=== PATIENT | female | born 1935 | race Asian ===

== ENCOUNTER 2018-05-17 13:49 | Inpatient (IN) | payer OTHER ==
[~2018-05-17] VITALS: Ht 152.4 cm; Wt 35.8 kg
[~2018-05-17 13:49] MED LIST: AMLO5TAB4 PO; MONT10TA25 PO
[2018-05-17 13:55] VITALS: BP_SYST 110
[2018-05-17] MEDS ORDERED: NACL 0.9% 1,000 ML IV ONE (14:42)
[2018-05-17 15:12] LABS: BILIRUBIN,URINE NEGATIVE (NEGATIVE); BLOOD, URINE NEGATIVE (NEGATIVE); CLARITY/URINE CLOUDY (CLEAR); COLOR,URINE YELLOW (YELLOW); GLUCOSE,URINE NEGATIVE (NEGATIVE); KETONES,URINE NEGATIVE (NEGATIVE); LEUKOCYTE ESTERASE ,URINE 1+ (NEGATIVE); NITRITE, URINE POSITIVE (NEGATIVE); PROTEIN URINE NEGATIVE (NEGATIVE); UROBILINOGEN,URINE 0.2 (0.2-1.0)
[2018-05-17 15:26] LABS: ANION GAP 5 (5-15); BASOPHILS % (AUTO) 0.8 % (0.0-2.0); CALCIUM 8.4 mg/dL (8.4-11.0); CHLORIDE 108 mmol/L (98-107); CREATININE 0.75 mg/dL (0.55-1.30); EOSINOPHILS % (AUTO) 0.9 % (0.0-4.0); GLUCOSE 102 mg/dL (70-99); HEMATOCRIT 31.9 % (36-48); HEMOGLOBIN 10.7 g/dL (12.0-16.0); LYMPHOCYTES # (AUTO) 1.1 K/uL (1.0-5.5); LYMPHOCYTES % (AUTO) 20.1 % (20.5-51.5); MEAN CORPUSCULAR HEMOGLOBIN 32 pg (27-31); MEAN CORPUSCULAR HGB CONC 34 % (32-36); MEAN CORPUSCULAR VOLUME 94 fL (79.0-98.0); MONOCYTES # (AUTO) 0.4 K/uL (0.0-1.0); NEUTROPHILS % (AUTO) 71.2 % (40.0-70.0); PLATELET COUNT (AUTO) 351 K/uL (130-430); POTASSIUM 3.4 mmol/L (3.5-5.1); RED BLOOD CELL COUNT(AUTO) 3.39 MIL/uL (4.2-6.2); RED CELL DISTRIBUTION WIDTH 12.6 % (9.0-15.0); SODIUM SERUM 140 mmol/L (136-145); UREA NITROGEN, BLOOD 17 mg/dL (8-21); WHITE BLOOD COUNT (AUTO) 5.5 K/uL (4.8-10.8)
[2018-05-17 15:31] LABS: ALANINE AMINOTRANSFERASE 17 U/L (12-78); ALBUMIN 2.7 g/dL (3.4-4.8); ASPARTATE AMINOTRANSFERASE 18 U/L (10-37); LIPASE 83 U/L (73-393); TOTAL BILIRUBIN 0.3 mg/dL (0.0-1.0)
[2018-05-17 15:42] LABS: BACTERIA,URINE MANY /HPF (None Seen); MUCUS,URINE 1+ /LPF (None Seen); RBC,URINE 0-3 /HPF (0-3); WBC,URINE 20-50 /HPF (0-3)
[2018-05-17] MEDS ORDERED: cefTRIAXone 1 GM IVPB PREMIX 50 ML IV ONE (16:15)
[2018-05-17] MEDS ORDERED: ASA81 PO (16:55)
[2018-05-17 18:29] VITALS: BP_SYST 166
[2018-05-17 20:00] VITALS: BP_SYST 137
[2018-05-17] MEDS: NACL 0.9% 1,000 ML IV SCH (20:55)
[2018-05-17] MEDS ORDERED: hydrALAZINE HCL 20 MG/ML VIAL IVP PRN (21:00)
[2018-05-17] MEDS ORDERED: ENALAPRILAT DIHYDRATE 1.25 MG/ML VIAL IVP PRN (21:00)
[2018-05-17] MEDS ORDERED: cloNIDine HCL 0.1 MG TABLET PO PRN (21:00)
[2018-05-18 00:15] VITALS: BP_SYST 194
[2018-05-18 03:40] VITALS: BP_SYST 160
[2018-05-18 04:30] VITALS: BP_SYST 134
[2018-05-18] MEDS: NACL 0.9% 1,000 ML IV SCH ×2 (07:30→17:06)
[2018-05-18] MEDS: ASPIRIN 81 MG TAB.CHEW PO SCH (09:24)
[2018-05-18 12:12] VITALS: BP_SYST 91
[2018-05-18 16:09] VITALS: BP_SYST 141
[2018-05-18] MEDS ORDERED: PANTOPRAZOLE SODIUM 40 MG/VIAL (PROTONIX) IVP ONE (16:15)
[2018-05-18 20:00] VITALS: BP_SYST 146
[2018-05-18] MEDS ORDERED: cefTRIAXone 1 GM VIAL ONE (20:50)
[2018-05-18] MEDS ORDERED: cefTRIAXone 1 GM IVPB PREMIX 50 ML IV ONE (20:52)
[2018-05-18] MEDS ORDERED: cefTRIAXone 1 GM in D5W 50 ML IV SCH (21:00)
[2018-05-19] VITALS (8 sets, daily range): BP systolic 131–158
[2018-05-19] MEDS: NACL 0.9% 1,000 ML IV SCH ×2 (05:47→18:01)
[2018-05-19] MEDS: ASPIRIN 81 MG TAB.CHEW PO SCH (09:00)
[2018-05-19] MEDS ORDERED: PANTOPRAZOLE SODIUM 40 MG/VIAL (PROTONIX) IVP SCH (09:00)
== END 2018-05-19 23:00 | disposition short-term general hospital (02) | DRG 689 ==
LOC: SED 13:49 → SMU 17:38
PROVIDERS: ADMIT Internal Medicine Hospice and Palliative Medicine; ATTEND Internal Medicine Hospice and Palliative Medicine
DX: N39.0 Urinary tract infection, site not specified (principal); E43 Unspecified severe protein-calorie malnutrition; J44.9 Chronic obstructive pulmonary disease, unspecified; R62.7 Adult failure to thrive; R16.0 Hepatomegaly, not elsewhere classified; K57.90 Diverticulosis of intestine, part unspecified, without perforation or abscess without bleeding; R10.9 Unspecified abdominal pain; I10 Essential (primary) hypertension; Z86.73 Personal history of transient ischemic attack (TIA), and cerebral infarction without residual deficits; Z79.82 Long term (current) use of aspirin
CPT/HCPCS: 36415; 71045; 74246; 80053; 81000-TC; 83605; 83690-TC; 85025; 87040-TC; 87086; 87186-TC; 93005; 96361; 96365; 99285; C9113; J0696; J7030; J7060